=== PATIENT | male | born 1970 | race Caucasian/White ===

== ENCOUNTER 2024-01-25 09:21 | Outpatient (CLI) | payer BC ==
[2024-01-25 12:16] LABS: BASOPHILS # (AUTO) 0.1 10^3/uL (0.0-0.1); EOSINOPHILS # (AUTO) 0.2 10^3/uL (0.0-0.7); EOSINOPHILS % (AUTO) 3.2 %; HCT - HEMATOCRIT 53.1 % (42.0-52.0); HGB - HEMOGLOBIN 18.3 g/dL (14.0-18.0); LYMPHOCYTES # (AUTO) 1.7 10^3/uL (1.5-3.5); LYMPHOCYTES % (AUTO) 28.9 %; MEAN CORPUSCULAR HEMOGLOBIN 31.7 pg (27.0-31.0); MEAN CORPUSCULAR HGB CONC 34.5 g/dL (32.0-36.0); MEAN CORPUSCULAR VOLUME 91.9 fL (80.0-94.0); MEAN PLATELET VOLUME 9.3 fL (7.4-11.4); MONOCYTES # (AUTO) 0.5 10^3/uL (0.0-1.0); MONOCYTES % (AUTO) 8.4 %; NEUTROPHILS # (AUTO) 3.5 10^3/uL (1.5-6.6); NEUTROPHILS % (AUTO) 58.3 %; PLT - PLATELET COUNT 268 10^3/uL (130-450); RED BLOOD COUNT 5.78 10^6/uL (4.70-6.10); RED CELL DISTRIBUTION WIDTH 13.5 % (12.0-15.0)
[2024-01-25 12:45] LABS: THYROID STIMULATING HORMONE 2.64 uIU/mL (0.34-5.60)
[2024-01-25 13:02] LABS: ALBUMIN 4.5 g/dL (3.2-5.5); ALBUMIN/GLOBULIN RATIO 1.6 (1.0-2.2); ALKALINE PHOSPHATASE 72 IU/L (42-121); ALT ALANINE AMINOTRANSFERASE 26 IU/L (10-60); AST ASPARTATE AMINOTRANSFERASE 23 IU/L (10-42); BILIRUBIN,TOTAL 0.7 mg/dL (0.2-1.0); BUN - BLOOD UREA NITROGEN 16 mg/dL (6-20); CARBON DIOXIDE - CO2 30 mmol/L (21-32); CHLORIDE 104 mmol/L (101-111); CHOL/HDL RATIO 6.9 (<5.0); CHOLESTEROL 235 mg/dL; CREATININE 1.3 mg/dL (0.6-1.3); GFR - MDRD 58 (>89); GLUCOSE 126 mg/dL (74-104); HDL CHOLESTEROL 34 mg/dL; LDL CHOLESTEROL,CALCULATED 157 mg/dL; LDL/HDL RATIO 4.6 (<3.6); POTASSIUM 4.4 mmol/L (3.5-4.5); SODIUM 139 mmol/L (135-145); TOTAL PROTEIN 7.3 g/dL (6.4-8.9); TRIGLYCERIDES 222 mg/dL (48-352); VLDL CHOLESTEROL 44 mg/dL
== END 2024-01-25 09:22 | disposition home or self-care (01) ==
LOC: LAB.N 09:21
PROVIDERS: ATTEND Physician Assistant
DX: I10 Essential (primary) hypertension (principal); Z12.5 Encounter for screening for malignant neoplasm of prostate; Z13.220 Encounter for screening for lipoid disorders
CPT/HCPCS: 36415; 80053; 80061; 83721; 84153; 84443; 85025

== ENCOUNTER 2024-03-07 09:49 | Outpatient (CLI) | payer BC ==
--- NOTE | 2024-03-07 10:48 | Sleep Patient Instructions ---
Sleep Center Visit Summary - Patient Visit Information Reason for Visit: Initial consultation - Patient Instructions Additional Instructions: You will continue with CPAP therapy with pressure set at 5-9 cmH2O. A supply prescription will be made of a new CPAP supplier and sent to them after we obtain copy of last sleep study. We encourage you to continue to try to lose weight. Please follow up with the sleep care office in 1 year. - Clinic Information Contact: [facility] [address] [place] [address] [email or web address] T: [phone]
--- NOTE | 2024-03-07 10:51 | SLEEP CARE CONSULTATION ---
Information from patient questionnaire entered by Brittany Manuel. I have reviewed and concur with the information entered by Brittany Manuel. This document represents the service I personally performed and the decisions made by me, Irma Omalley ARNP. History of Present Illness Service Date and Time: 03/07/2024 0949 Reason for Visit: New patient, Previously diagnosed sleep apnea, sleep apnea on CPAP therapy Chief Complaint: reports: Other (TRANSFER FROM PREVIOUS SLEEP CENTER) Date of Onset: 2018 Usual bedtime: 7223-2333 Time it takes to fall asleep: 3MINS Snores at night: Yes Observed to quit breathing while asleep: Yes Sleeps alone due to snoring: No Number of times waking at night: 1-2 Reasons for waking at night: reports: Bathroom, Other (UNKNOWN) Recalls having dreams: No Usually gets out of bed at: 0800 Feels refreshed in the morning: No Morning headache: No Sleepy or fatigued during the day: Yes Ever fallen asleep while driving: No Takes day naps: No Prior sleep studies: Yes Year and Where: [place], [place] 2021 Additional HPI information: MATHIEU CRUZ was previously diagnosed to have unknown, AHI unknown, sleep apnea-hypopnea syndrome and comes in today to establish care for CPAP therapy. - Parasomnia Symptoms Ever been unable to move upon waking from sleep: No Walks in sleep: No Talks in sleep: No Ever acted out dreams in sleep: No Ever felt weak in the knees when startled or emotional: No Bothered by creepy, crawly, restless sensations in legs: No Problems with memory or concentration: Yes CPAP Compliance Data - Data Reviewed with Patient Average duration of nightly device use: 8 hours 15 minutes Compliance rate %: 100 (90/90 days used; 12/08/2023-03/06/2024) Current pressure setting (cmH2O): 5-9 Average residual AHI: 1.3 Central apnea: 0.9 Obstructive apnea: 0.2 Hypopnea: 0.2 Average large leak: 0 L/min Compliance data discussion: He has a Resmed Airsense 11 that was last setup at 08/26/2022. He has not been getting supplies from [employer], needs a supplier. He is using a nasal pillows mask, AirFit P30i, medium cushion. Subjective Patient concerns: reports: nasal congestion. denies: aerophagia, mask discomfort, air blowing in eyes, mask leak noise, condensation in mask/hose, dry mouth, nose, throat, epistaxis Observed to snore while using device: No Current pressure setting perceived as: comfortable On therapy, patient: reports: sleeping better, being more awake and alert during the day, more rested overall. denies: awakening more refreshed, drowsiness while driving Initial [place] Sleepiness Scale score: 5 (03/03/24) Past Medical History Past Medical History: reports: Hypertension, Anxiety, GERD, Other (ERECTILE DISFUNCTION) Social History The patient's occupation is a . Patient is and lives in . Have you smoked in the past 12 months: No Alcohol use: No Caffeine use: Yes Caffeine amount and frequency: 1 coffee during day Family History Family history of sleep disordered breathing: Yes Family Hx Sleep Apnea: Sibling: Snoring Allergies and Home Medications Known drug allergies: No Drug allergies reviewed: Yes Home medication list reviewed: Yes (as listed) Allergy and home medication list: Home Medications Medication Instructions Recorded Confirmed Last Taken Type Aspirin [[place]] See Rx Instructions .ROUTE .COMPLEX 03/07/24 03/07/24 Unknown History Magnesium See Rx Instructions .ROUTE .COMPLEX 03/07/24 03/07/24 Unknown History Multivitamin See Rx Instructions .ROUTE .COMPLEX 03/07/24 03/07/24 Unknown History BP medication -statin Review of Systems Cardiovascular: reports: high blood pressure, palpitations Gastrointestinal: reports: heartburn, nausea Psychiatric: reports: anxiety Ear/Nose/Throat: reports: nasal congestion, wisdom teeth removed Physical Exam Vital signs obtained and entered by: BRITTANY Lopez MA Blood Pressure: 137/89 (RIGHT ARM) Cuff size: regular Heart Rate: 83 O2 Saturation: 96 Height: 5 ft 9.5 in Weight: 204 lb 3.2 oz Body Mass Index: 29.7 BMI Classification: Overweight Neck circumference: 18 Heart: regular rate and rhythm Lungs: clear bilaterally Impression and Plan 1. Obstructive Sleep Apnea-Hypopnea Syndrome, unknown, with good treatment compliance and good apnea control. On CPAP therapy, the patient has better sleep quality and is more rested overall. Patient has significant improvement of their sleep apnea and is satisfied with current CPAP therapy. He does get a little nasal congestion for which he uses a nasal spray in the morning. I advised him to try a saline nasal spray prior to bedtime and to increase his humidity by 1 to reduce nasal dryness which could contribute to nasal congestion. He voiced understanding. Patient's apnea severity and rationale for treatment to reduce apnea, improve sleep quality and reduce cardiovascular and cerebrovascular events was reviewed. I also reviewed the benefit of consistent device use of CPAP for hypertension, gastric reflux, anxiety. 2. Overweight, unspecified. Currently patients BMI is 29.7. Obesity increases the risk of apnea, CPAP pressure requirements and overall health risks especially cardiovascular and diabetes. Thus patient is advised to continue to try to lose weight. * Continue auto CPAP pressure at 5-9 cmH2O * Obtain copy of sleep study from [facility] [employer] * Transfer DME * Update supplies * Notify me if snoring with mask or feeling that the pressure is too much or too little * Attempt to lose weight * Call this office if any problems using CPAP * Return for follow up in 12 months, or sooner if concerns arise Counseling Topics: Spare mask, Weight loss health impact Prescriptions: Device supplies (with DME transfer) Follow up with Sleep Care in: 1 year Visit Type: In Office Time Spent with Patient (minutes): 33 Provider Statement: I spent 100% of the Face to Face Visit with the patient with greater than 50% spent counseling the patient and coordination of care.
[2024-03-07 10:57] VITALS: BP 137/89; O2SAT 96
== END 2024-03-07 09:50 | disposition home or self-care (01) ==
LOC: SC 09:49
PROVIDERS: ATTEND Nurse Practitioner Family
DX: G47.33 Obstructive sleep apnea (adult) (pediatric) (principal)
CPT/HCPCS: 99203; 99212

== ENCOUNTER 2024-03-20 08:53 | Outpatient (CLI) | payer BC ==
[2024-03-20 13:15] LABS: ALBUMIN 4.5 g/dL (3.2-5.5); ALKALINE PHOSPHATASE 86 IU/L (42-121); ALT ALANINE AMINOTRANSFERASE 48 IU/L (10-60); AST ASPARTATE AMINOTRANSFERASE 34 IU/L (10-42); BILIRUBIN,TOTAL 0.8 mg/dL (0.2-1.0); BUN - BLOOD UREA NITROGEN 16 mg/dL (6-20); CALCIUM 9.6 mg/dL (8.5-10.3); CARBON DIOXIDE - CO2 31 mmol/L (21-32); CHLORIDE 105 mmol/L (101-111); CHOL/HDL RATIO 3.5 (<5.0); CHOLESTEROL 111 mg/dL; CREATININE 1.3 mg/dL (0.6-1.3); GFR - MDRD 58 (>89); GLUCOSE 125 mg/dL (74-104); HDL CHOLESTEROL 32 mg/dL; LDL CHOLESTEROL,CALCULATED 42 mg/dL; LDL/HDL RATIO 1.3 (<3.6); POTASSIUM 4.4 mmol/L (3.5-4.5); SODIUM 140 mmol/L (135-145); TOTAL PROTEIN 6.7 g/dL (6.4-8.9); TRIGLYCERIDES 184 mg/dL (48-352); VLDL CHOLESTEROL 37 mg/dL
[2024-03-20 13:37] LABS: ESTIMATED AVERAGE GLUCOSE 97 mg/dL (70-100)
== END 2024-03-20 08:54 | disposition home or self-care (01) ==
LOC: LAB.N 08:53
PROVIDERS: ATTEND Physician Assistant
DX: E78.5 Hyperlipidemia, unspecified (principal); R73.01 Impaired fasting glucose
CPT/HCPCS: 36415; 80053; 80061; 83036; 83721

== ENCOUNTER 2024-04-21 08:14 | Outpatient (CLI) | payer BC ==
[2024-04-21 12:29] LABS: CALCIUM 9.7 mg/dL (8.5-10.3); CREATININE 1.3 mg/dL (0.6-1.3); POTASSIUM 4.4 mmol/L (3.5-4.5)
== END 2024-04-21 08:15 | disposition home or self-care (01) ==
LOC: LAB.N 08:14
PROVIDERS: ATTEND Physician Assistant
DX: I10 Essential (primary) hypertension (principal)
CPT/HCPCS: 36415; 80048